=== PATIENT | female | born 1935 | race African-American/Black ===

== ENCOUNTER 2016-11-12 19:46 | Inpatient (IN) ==
[2016-11-12] MEDS ORDERED: ONDANSETRON 4 MG/2 ML VIAL IV STA (20:01)
[2016-11-12] MEDS ORDERED: SODIUM CHLORIDE 0.9% 1,000 ML IV STA (20:01)
--- NOTE | 2016-11-12 20:04 | Emergency Department Note ---
Mikie Kirkpatrick Hilary, am scribing for, and in the presence of, Bebo Freitas MD 20: 02. [place] Kirkpatrick Andrew, MD, personally performed the services described in this documentation, ascribed by Lori Deluna in my presence, and it is both accurate and complete . Arrival - Arrival Chief Complaint: Nausea/Vomiting/Diarrhea Stated Complaint: upper abdominal pain with vomitting ED Nursing Triage Note: pt to triage via wc c/o n/v with epigastastric pain. pt states she fels burning in her throat. Mode of Arrival: Wheelchair Limitations: No Limitations Source: Patient, RN Notes Reviewed - History of Present Illness HPI Narrative: Pt is a black female presenting to the ED with c/o N/v which onset around 1430 today. She confirms nausea, vomiting, upper abdominal pain and burning in her throat but denies respiratory distress. Pt states that she has never had this feeling before. No other complaints or problems stated in the ED. she states that her last bowel movement was earlier in the day. She states she has been passing some gas. No bloody stools. Onset (ago): hour(s) Consistency: constant Severity: mild Severity scale (1-10): 1 Allergies/Adverse Reactions: Allergies Allergy/AdvReac Type Severity Reaction Status Date / Time No Known Allergies Allergy Unverified 11/12/16 19:52 Home Medications: Home Medications Medication Instructions Recorded Confirmed Type amLODIPine/BENAZEPRIL 5-10 [Lotrel 1 capsule PO QAM 11/12/16 11/12/16 History 5-10] Review of System - Review of System 12 point system: reviewed and no additional remarkable complaints except as stated - Review of System Constitutional: Absent: fever Respiratory: Absent: respiratory distress Gastrointestinal: Present: abdominal pain, nausea, vomiting Genitourinary female: Absent: dysuria, frequency, urgency Medical,Surgical,& Family Hx - Medical History Cardio: History of: Hypertension - Surgical History Reproductive Surgeries: Surgical HX of;: Hysterectomy (1975) - Social History Smoking Status: Never smoker Frequency of Alcohol Use: None Type of Drug Use: None Exam Vital Signs: Vital Signs Temperature 97.7 F 11/12/16 19:48 Pulse Rate 94 H 11/12/16 19:48 Respiratory Rate 16 11/12/16 19:48 Blood Pressure 188/79 11/12/16 19:48 - General General appearance: alert, other (mild distress) - Head Head exam: Present: atraumatic, normocephalic - Eye Eye exam: Present: normal appearance, PERRL, EOMI - ENT ENT exam: Present: mucous membranes moist, TM's normal bilaterally. Absent: mucous membranes dry - Neck Neck exam: Present: full ROM, trachea midline. Absent: tenderness - Chest Chest inspection: Present: symmetric chest wall rise. Absent: tenderness - Respiratory Respiratory exam: Present: normal lung sounds bilaterally. Absent: respiratory distress - Cardiovascular Cardiovascular exam: Present: regular rate, normal rhythm, normal heart sounds. Absent: murmur, rubs, gallop - Abdominal Exam Abdominal exam: Present: soft, tenderness (epigastric), normal bowel sounds. Absent: distention - Extremities Exam Extremities exam: Present: full ROM. Absent: tenderness - Back Exam Back exam: Present: full ROM. Absent: tenderness - Neurological Exam Neurological exam: Present: alert, oriented X3, CN II-XII intact. Absent: motor sensory deficit - Psychiatric Psychiatric exam: Present: normal affect, normal mood - Skin Skin exam: Present: warm, dry, intact, normal color. Absent: rash Course Course Narrative: Bolus and Zofran given with some improvement, but still with some pain. CT abdomen and pelvis reveals evidence of enteritis and possible small bowel obstruction versus reactive small bowel ileus. Given patient's history, feel that it is unlikely that the patient has a small bowel obstruction, but will admit the patient to the hospitalist, Dr. Atkinson for further management. Results - Labs CBC & BMP: 11/12/16 20:34 11/12/16 20:34 Lab Results: I have reviewed the patients labs Labs: Laboratory Tests 11/12/16 20:34 WBC 15.9 H RBC 5.20 Hgb 14.8 Hct 43.2 MCV 83.1 L Plt Count 284 Neut % (Auto) 81.0 H Lymph % (Auto) 14.1 L Neut # (Auto) 12.9 H Laboratory Tests 11/12/16 20:34 Sodium 144 Potassium 3.2 L Chloride 101 Carbon Dioxide 32 BUN 17 BUN/Creatinine Ratio 17.00 Glucose 192 H Total Protein 7.4 Laboratory Tests 11/12/16 20:34 Urine pH 8.0 Ur Specific [place] 1.004 Urine Ketones 5 Urine Urobilinogen < 2.0 H Urine WBC <1 Hyaline Casts 1 Disposition Clinical Impression: Nausea and vomiting, Epigastric abdominal pain, Enteritis Case discussed with: patient, patient's family Disposition: Still a Patient Condition: Stable
[2016-11-12] MEDS ORDERED: ONDANSETRON 4 MG/2 ML VIAL ONE (20:24)
[2016-11-12 20:46] LABS: Basophils # 0.1 10*3/uL (0.0-0.2); Basophils % 0.4 % (0.0-0.8); Hematocrit 43.2 VOL% (35.7-47.0); Hemoglobin 14.8 GM/DL (12.0-16.0); Immature Granulocytes % 0.5 %; Immature Granulocytes Absolute 0.08 #; Lymphocytes # 2.2 10*3/uL (1.4-4.0); Lymphocytes % 14.1 % (21.3-54.2); Mean Corpuscular HGB Conc 34.3 GM/DL (32-36); Mean Corpuscular Hemoglobin 29 PG (27-34); Mean Corpuscular Volume 83.1 FL (87-102); Mean Platelet Volume 10.5 FL (9.6-12.0); Monocytes # 0.6 10*3/uL (0.11-0.8); Neutrophils # 12.9 10*3/uL (1.4-7.4); Platelet Count 284 T/CUMM (130-400); Red Cell Distribution Width 12.7 % (9.3-17.3); White Blood Count 15.9 T/CUMM (4-12)
[2016-11-12 21:04] LABS: Albumin 3.9 G/DL (3.4-5.0); Bilirubin,Total 0.5 MG/DL (0.2-1.0); Calcium 9.9 MG/DL (8.5-10.1); Osmolality,Calculated 292.8 MOS/KG (273-304); Potassium 3.2 MMOL/L (3.5-5.1); Total Protein 7.4 G/DL (6.4-8.3)
[2016-11-12] MEDS ORDERED: ALUM/MAG/SIMETH/LIDO VISC 1:1 30 ML BOTTLE PO STA (21:34)
[2016-11-12] MEDS ORDERED: ALUM/MAG/SIMETH/LIDO VISC 1:1 30 ML BOTTLE PO ONE (21:35)
[2016-11-12 21:41] LABS: Apearance,Urine CLEAR (Clear); Bilirubin,Urine Negative (Negative); Blood, Urine Negative (Negative); Glucose,Urine (UA) Negative (Negative); Hyaline Casts,Urine 1 /LPF (0-3); Ketones,Urine 5 mg/dL (Negative); Mucus,Urine Occasional /LPF (Occasional); Nitrite,Urine Negative (Negative); Protein,Urine Negative; Squamous Epithelial Cell,Urine Occasional /HPF (0-10); Urine Color Straw (Yellow); Urine Specific Gravity 1.004 (1.001-1.035); Urine Urobilinogen < 2.0 EU/DL (0.2-1.0); WBC,Urine <1 /HPF (0-6)
[2016-11-12] MEDS ORDERED: MORPHINE 2 MG/1 ML SYRINGE IV STA (22:26)
[2016-11-12] MEDS ORDERED: MORPHINE 2 MG/1 ML SYRINGE ONE (22:59)
[2016-11-12] MEDS ORDERED: ACETAMINOPHEN 325 MG TABLET PO PRN (23:40)
[2016-11-12] MEDS ORDERED: ZALEPLON 5 MG CAPSULE PO PRN (23:40)
[2016-11-12] MEDS ORDERED: ONDANSETRON 4 MG/2 ML VIAL IV PRN (23:40)
[2016-11-12] MEDS ORDERED: ENOXAPARIN 40 MG/0.4 ML SYRINGE SUBCUT SCH (23:45)
[2016-11-12] MEDS ORDERED: hydrALAZINE 20 MG/1 ML VIAL IV PRN (23:45)
--- NOTE | 2016-11-13 00:33 | Hospitalist History & Physical ---
Assessment and Plan (1) Epigastric abdominal pain Status: Acute Assessment and plan: Early SBO vs. enteritis. N/V has resolved since admission. Abdominal CT shows what appears to be inflamed small bowel without evidence of acute obstruction. Admit for observation. KUB in am. Flagyl and Reglan. IV NS 125 ml/hr. Clear liquid diet. Current Visit: Yes (2) Hypertension Status: Acute Assessment and plan: Continue home meds. Add hydralazine PRN. Monitor BP. Current Visit: Yes (3) Nausea and vomiting Status: Acute Assessment and plan: Resolved on admission. Zofran 4mg IV PRN. Current Visit: Yes History of Present Illness Chief complaint: epigastric abdominal pain History of present illness: Ms. Xiong is a very pleasant 81 year old female with a past medical history significant for hypertension, GERD who presents to the ED tonight with complaints of abdominal pain, N/V which onset at 1400 Monday. She reports that she was at a pre-holiday family cookout and had only eaten one BBQ rib, a bag of BBQ potato chips and drank some peach tea when she began to feel this pain with associated nausea. She reports acute onset of 2 N/V episodes only one hour after consumption. She denies a recent history of abdominal surgeries, diarrhea, fever, headache, bright red blood per rectum, syncope. Lab work on admission reveals WBC 15.9, Hgb 14.8, Hct 43.2, sodium 144 , potassium 3.2, BUN 17, creatinine 1.00. UA is unremarkable. CT of abdomen shows inflamed small bowel and significant fluid in the stomach. This case has been discussed with Dr. Freitas and Dr. Turk, and the patient will be admitted for observation and further treatment. She is a full code. Home meds have been reviewed and reconciled. Home Medications Medication Instructions Recorded Confirmed Type amLODIPine/BENAZEPRIL 5-10 [Lotrel 1 capsule PO QAM 11/12/16 11/12/16 History 5-10] Allergies Allergy/AdvReac Type Severity Reaction Status Date / Time No Known Allergies Allergy Unverified 11/12/16 19:52 Medical,Surgical,& Family Hx - Medical History Cardio: History of: Hypertension - Surgical History Reproductive Surgeries: Surgical HX of;: Hysterectomy (1975) - Family History Family History: Reports;: Family Diabetes, Family Hypertension - Social History Smoking Status: Never smoker Frequency of Alcohol Use: None Type of Drug Use: None Marital Status: Lives With:: Alone Functional capacity: independent ambulation 12 point system: reviewed and no additional remarkable complaints except as stated Exam - Constitutional Vitals: Period Temp Pulse Resp BP Sys/Guan Pulse Ox Last 24 Hr 97.7 F 94 16 188/79 General appearance: normal weight, no acute distress - Head Head exam: Present: normal inspection, normocephalic, atraumatic - Eye Eye exam: Present: EOMI Pupils: Present: REMBERTO - ENT ENT exam: Present: normal exam, normal external ear exam - Neck Neck exam: Present: normal inspection. Absent: lymphadenopathy, tenderness, thyromegaly - Respiratory Respiratory exam: Present: clear to auscultation bilaterally. Absent: chest wall tenderness, rales, rhonchi, wheezes - Cardiovascular Cardiovascular exam: Present: regular rate and rhythm. Absent: bradycardia, carotid bruit, gallop - GI/Abdominal GI/Abdominal exam: Present: normal bowel sounds, soft. Absent: mass, tenderness , rebound - Extremities Exam Extremities exam: Present: normal inspection, full ROM. Absent: calf tenderness , edema - Back Exam Back exam: Present: normal inspection. Absent: CVA tenderness (L), CVA tenderness (R) - Neurological Exam Neurological exam: Present: alert, oriented X3, CN II-XII intact, reflexes normal - Psychiatric Psychiatric exam: Present: normal affect, normal mood - Skin Skin exam: Present: normal color, warm, dry, intact. Absent: erythema Results - Labs CBC & BMP: 11/12/16 20:34 11/12/16 20:34
[2016-11-13] MEDS: SODIUM CHLORIDE 0.9% 1,000 ML IV SCH ×2 (01:27→09:47)
[2016-11-13] MEDS: POTASSIUM CHLORIDE RIDER 10 MEQ in PREMIX 1 EACH IV SCH ×4 (01:28→05:02)
[2016-11-13] MEDS: METOCLOPRAMIDE 10 MG/2 ML VIAL IV SCH ×2 (01:28→06:07)
[2016-11-13] MEDS: metroNIDAZOLE INJ 500 MG in PREMIX 1 EACH IV SCH ×2 (01:28→08:42)
[2016-11-13 03:33] LABS: Basophils % 0.2 % (0.0-0.8); Hematocrit 39.4 VOL% (35.7-47.0); Hemoglobin 12.9 GM/DL (12.0-16.0); Immature Granulocytes % 0.4 %; Immature Granulocytes Absolute 0.05 #; Lymphocytes # 1.9 10*3/uL (1.4-4.0); Lymphocytes % 14.5 % (21.3-54.2); Mean Corpuscular HGB Conc 32.7 GM/DL (32-36); Mean Corpuscular Hemoglobin 28 PG (27-34); Mean Corpuscular Volume 84.2 FL (87-102); Mean Platelet Volume 11.2 FL (9.6-12.0); Monocytes # 0.7 10*3/uL (0.11-0.8); Monocytes % 5.5 % (1.7-12.7); Neutrophils # 10.5 10*3/uL (1.4-7.4); Neutrophils % 79.4 % (38.7-73.9); Platelet Count 267 T/CUMM (130-400); Red Blood Count 4.68 MC/CUMM (3.8-5.5); White Blood Count 13.2 T/CUMM (4-12)
[2016-11-13 04:23] LABS: Albumin 3.2 G/DL (3.4-5.0); Bilirubin,Total 0.8 MG/DL (0.2-1.0); Calcium 9.1 MG/DL (8.5-10.1); Magnesium 2.2 MG/DL (1.8-2.4); Osmolality,Calculated 295.6 MOS/KG (273-304); Potassium 3.8 MMOL/L (3.5-5.1); Total Protein 6.4 G/DL (6.4-8.3)
[2016-11-13 07:50] VITALS: BP 163/73
--- NOTE | 2016-11-13 08:50 | CT Report ---
History: Abdominal pain with nausea and vomiting Date: 11/13/2016 Study: CT abdomen and pelvis with IV contrast Comparison exam: No previous similar Technique: Spiral CT sections were obtained from the lung bases to the pubic symphysis following 100 mL Omnipaque [address] exam was performed using one or more of the following dose reduction techniques: Automated exposure control, adjustment of the mA and/or kV according to patient size, or use of iterative reconstruction technique. The study was also reviewed by [facility]. CT abdomen: The partially visualized lung bases are generally clear. There is a small hiatal hernia. There are small fat-containing posterior diaphragmatic hernias bilaterally. There is a 10 mm rounded low density in the right hepatic lobe anteriorly and laterally which could represent cyst or hemangioma. The spleen, bile ducts, and contracted fluid-filled gallbladder are unremarkable. The kidneys are normal in appearance. There is bilateral renal excretion without hydronephrosis. There is a 16 mm left adrenal nodule which is nonspecific and could represent adenoma, though other underlying pathology cannot be excluded. The right adrenal gland is normal. There is no evidence of pneumoperitoneum. There is no aneurysm of the moderately calcified abdominal aorta. There is colonic diverticulosis without evidence of yonis diverticulitis. The appendix is not seen, though there is no evidence to suggest acute appendicitis. There are some loops of small bowel with circumferential wall thickening in the mid to lower central abdomen. Proximal to that level, there are some dilated loops of small bowel measuring up to 3.1 cm diameter. There is no obvious lymphadenopathy. There is some mild free fluid in the left paracolic gutter. CT pelvis: There is mild to moderate free fluid in the pelvis. The uterus is not seen compatible with prior hysterectomy. There is a 4 cm left inguinal hernia containing fluid and fat. The urinary bladder is moderately distended. There is prominent degenerative disc disease of the lumbosacral spine. There is no pelvic lymphadenopathy. Impression: Smooth localized wall thickening of small bowel in the region of the distal jejunum or proximal ileum which could be inflammatory in nature and related to enteritis. There is some small bowel dilatation proximal to this point compatible with mild partial small bowel obstruction. Diverticulosis without yonis diverticulitis Abdominal and pelvic free fluid without abscess 16 mm left adrenal nodule which may represent adenoma, though other pathology cannot be excluded Other nonacute findings discussed above PROCEDURE INTERPRETED AT [facility] DEPARTMENT OF RADIOLOGY Final Report Signed by: Dr. Alaina Maradiaga
--- NOTE | 2016-11-13 08:57 | XRay Report ---
History: Abdominal pain. Abnormal CT scan Date: 11/13/2016 Study: KUB Comparison exam: Abdominal x-ray January 30, 2008 The bowel gas pattern is nonobstructive on the current exam. There is a mild to moderate amount of retained stool in the normal caliber colon. No radiopaque calculi are seen. There is contrast material in the bladder from a recent CT scan. There is degenerative disc disease of the lumbar spine. Impression: No definite acute process PROCEDURE INTERPRETED AT [facility] DEPARTMENT OF RADIOLOGY Final Report Signed by: Dr. Alaina Maradiaga
[2016-11-13] MEDS ORDERED: PANTOPRAZOLE 40 MG TABLET PO SCH (09:00)
[2016-11-13] MEDS ORDERED: BENAZEPRIL 10 MG TABLET PO SCH (09:00)
[2016-11-13] MEDS ORDERED: amLODIPine 5 MG TABLET PO SCH (09:00)
--- NOTE | 2016-11-13 09:40 | Discharge Summary ---
Hospital Course - Hospital Course Hospital Course: 82-year-old -Swedish female who presented with complaints of epigastric abdominal pain and nausea vomiting with onset approximately 2 PM on Monday. She was at a family cookout and had only eaten one barbecue rib and back barbecued potato chips which began to have some associated pain with nausea. She presented to the emergency room and was evaluated in noted to have a mild leukocytosis and CT of the abdomen showed inflamed small bowel and significant fluid in the stomach with possibility of partial small bowel obstruction. She had been afebrile. Her last bowel movement was yesterday was within normal limits. She was admitted for further observation. She was hydrated and received parenteral antiemetics and analgesics and was placed on empiric IV Flagyl. She had no diarrhea, melena, hematochezia, hematemesis. She had no further nausea or vomiting. Follow-up KUB revealed no abnormalities. She remained afebrile and hemodynamically stable. She tolerated her diet and oral medications without difficulty. She desired to go home. I had a long discussion with both the patient and her family members in the room and instructed that she could go home on current medical therapy as prescribed with close attention to fever, recurrent nausea vomiting, recurrent abdominal pain, onset of diarrhea etc. at which time she did need to return for further care. She is to have outpatient follow-up with Dr. Sierra as well and may consider outpatient GI evaluation, jd jones. - Time spent with patient Time with patient DS: Less than 30 minutes Diagnosis - Discharge Diagnosis (1) Enteritis Status: Acute (2) Hypertension Status: Acute Discharge Plan - Discharge Data Disposition: Disch To Home/Self Care Condition at Discharge: Stable Discharge Diet: other (Advanced to regular diet slowly as discussed) Activity: resume usual activities as tolerated Hygiene: no restrictions Weight Bearing at Discharge: full weight bearing Contact your physician if you experience:: fever over 101, Nausea/Vomiting, pain uncontrolled by pain medications - Discharge Medications New metroNIDAZOLE TAB [Flagyl Cap/Tab] 500 mg PO TID #21 tablet Ondansetron Tab [Zofran Tab] 4 mg PO Q6H PRN #12 tablet PRN Reason: Nausea Pantoprazole Tab [Protonix Tab] 40 mg PO DAILY #30 tablet Continue amLODIPine/BENAZEPRIL 5-10 [Lotrel 5-10] 1 capsule PO QAM - Follow Up or Referral Follow Up: Jameel Hooper MD [Physician] - 5 Days - Forms/Instructions Exam - Constitutional Vitals: Period Temp Pulse Resp BP Sys/Guan Pulse Ox Last 24 Hr 96.9 F-98.4 F 75-97 16-18 134-188/67-88 98-100 General appearance: no acute distress - Head Head exam: Present: normocephalic, atraumatic - Eye Eye exam: Present: EOMI. Absent: scleral icterus Pupils: Present: REMBERTO - ENT ENT exam: Present: normal oropharynx - Neck Neck exam: Present: normal inspection. Absent: lymphadenopathy, meningismus, tenderness, thyromegaly - Respiratory Respiratory exam: Present: clear to auscultation bilaterally. Absent: rales, rhonchi, wheezes - Cardiovascular Cardiovascular exam: Present: regular rate and rhythm. Absent: systolic murmur , tachycardia - GI/Abdominal GI/Abdominal exam: Present: normal bowel sounds, soft. Absent: distended, guarding, mass, Arzate's sign, tenderness, rebound - Extremities Exam Extremities exam: Present: normal capillary refill. Absent: calf tenderness, edema - Back Exam Back exam: Present: normal inspection - Neurological Exam Neurological exam: Present: alert, oriented X3, CN II-XII intact. Absent: motor sensory deficit - Psychiatric Psychiatric exam: Present: normal affect, normal mood. Absent: agitated, anxious - Skin Skin exam: Present: warm, dry. Absent: erythema, rash Discharge Results Labs on day of discharge: Labs from last 24 hours 11/13/16 11/13/16 11/12/16 02:33 02:33 20:34 WBC 13.2 H RBC 4.68 Hgb 12.9 Hct 39.4 MCV 84.2 L MCH 28 MCHC 32.7 RDW 13.0 Plt Count 267 MPV 11.2 Neut % (Auto) 79.4 H Lymph % (Auto) 14.5 L [place] % (Auto) 5.5 Eos % (Auto) 0.0 Baso % (Auto) 0.2 Neut # (Auto) 10.5 H Lymph # (Auto) 1.9 [place] # (Auto) 0.7 Eos # (Auto) 0.0 Baso # (Auto) 0.0 Immature Gran % 0.4 Nucleated RBC % 0.0 Immature Gran # 0.05 Nucleated RBCs # 0.00 Sodium 146 H 144 Potassium 3.8 3.2 L Chloride 108 H 101 Carbon Dioxide 28 32 Anion Gap 13.8 14.2 BUN 16 17 Creatinine 0.90 1.00 GFR Calculation 69 60 BUN/Creatinine Ratio 17.00 17.00 Glucose 187 H 192 H Calculated Osmolality 295.6 292.8 Calcium 9.1 9.9 Magnesium 2.2 Total Bilirubin 0.80 0.50 AST 12 14 ALT 17 19 Alkaline Phosphatase 100 110 Total Protein 6.4 7.4 Albumin 3.2 L 3.9 Globulin 3.2 3.5 Albumin/Globulin Ratio 1.0 L 1.1 Lipase 132.0 Urine Color Urine Appearance Urine pH Ur Specific [place] Urine Protein Urine Glucose (UA) Urine Ketones Urine Blood Urine Nitrate Urine Bilirubin Urine Urobilinogen Urine Leukocytes Urine WBC Ur Squamous Epith Cells Hyaline Casts Urine Mucus Ur Culture Indicated? 11/12/16 11/12/16 20:34 20:34 WBC 15.9 H RBC 5.20 Hgb 14.8 Hct 43.2 MCV 83.1 L MCH 29 MCHC 34.3 RDW 12.7 Plt Count 284 MPV 10.5 Neut % (Auto) 81.0 H Lymph % (Auto) 14.1 L [place] % (Auto) 4.0 Eos % (Auto) 0.0 Baso % (Auto) 0.4 Neut # (Auto) 12.9 H Lymph # (Auto) 2.2 [place] # (Auto) 0.6 Eos # (Auto) 0.0 Baso # (Auto) 0.1 Immature Gran % 0.5 Nucleated RBC % 0.0 Immature Gran # 0.08 Nucleated RBCs # 0.00 Sodium Potassium Chloride Carbon Dioxide Anion Gap BUN Creatinine GFR Calculation BUN/Creatinine Ratio Glucose Calculated Osmolality Calcium Magnesium Total Bilirubin AST ALT Alkaline Phosphatase Total Protein Albumin Globulin Albumin/Globulin Ratio Lipase Urine Color Straw Urine Appearance Clear Urine pH 8.0 Ur Specific [place] 1.004 Urine Protein Negative Urine Glucose (UA) Negative Urine Ketones 5 Urine Blood Negative Urine Nitrate Negative Urine Bilirubin Negative Urine Urobilinogen < 2.0 H Urine Leukocytes Negative Urine WBC <1 Ur Squamous Epith Cells Occasional Hyaline Casts 1 Urine Mucus Occasional Ur Culture Indicated? Not indicated - Imaging and Cardiology Procedure: KUB x-ray: report reviewed by me, CT: report reviewed by me DS: Provider Date of admission: 11/12/16 23:41 Primary care physician: . No PCP Jameel Sierra MD Attending physician on admission: Addis Turk MD Consults: 11/13/16 02:07 Consult to Pastoral Services [CONS] Routine Comment: Pastoral Screen: Request Leak Inspector Visit Pastoral Screen Source of Request: Patient Discharging clinician: Jessenia Delgado Expected date of discharge: 11/13/16
[2016-11-13] MEDS ORDERED: metroNIDAZOLE 500 MG TABLET PO SCH (15:00)
== END 2016-11-13 10:50 | disposition home or self-care (01) | DRG 392 ==
LOC: N.ED 19:46 → SUATTDRO 23:41 → N.3E 23:41
PROVIDERS: ADMIT Family Medicine; ATTEND Hospitalist